=== PATIENT | female | born 1990 | race Caucasian/White ===

== ENCOUNTER 2016-05-24 00:14 | Emergency (ER) | payer BC ==
[2016-05-24 00:22] VITALS: TEMP 98.1
[2016-05-24] MEDS ORDERED: FAMOTIDINE 20 MG/2 ML SDV ONE (00:41)
[2016-05-24] MEDS ORDERED: methylPREDNISolone SOD SUCC 125 MG/2 ML VIAL IVP ONE (00:44)
[2016-05-24] MEDS ORDERED: FAMOTIDINE 20 MG/2 ML SDV IVP ONE (00:46)
[2016-05-24] MEDS ORDERED: methylPREDNISolone SOD SUCC 125 MG/2 ML VIAL ONE (01:44)
--- NOTE | 2016-05-24 01:57 | EDPHY ---
H & P Stated Complaint: allergic rxn of unk source, swelling/itching to face, some swelling in thro Time Seen by Provider: 05/24/16 00:34 HPI/ROS: HPI The patient presents difficulty swallowing and periorbital swelling which began just prior to presentation. She drink a raspberry sour at about 10:45 p.m. tonight and then noticed that her eyes were watering and her throat and face felt itchy. She had some difficulty swallowing. Her symptoms were constant and getting progressively worse, thus she came to the emergency room. She has no prior history of similar. She does have an allergy to Bactrim which causes a rash. She has no family history of allergies except for a father with seasonal allergies. She does not have any rash, vomiting, dizziness. REVIEW OF SYSTEMS Constitutional: No fever, no chills. Eyes: No discharge. ENT: No sore throat. Cardiovascular: No chest pain, no palpitations. Respiratory: No cough, no shortness of breath. Gastrointestinal: No abdominal pain, no vomiting. Genitourinary: No hematuria. Musculoskeletal: No back pain. Skin: No rashes. Neurological: No headache. PMHx: Healthy PHYSICAL General Appearance: Alert, no distress Eyes: Pupils equal and round no pallor or injection, periorbital edema bilaterally causing her eyes to be mostly shot ENT, Mouth: Mucous membranes moist, posterior pharynx appears normal Respiratory: There are no retractions, lungs are clear to auscultation Cardiovascular: Regular rate and rhythm Gastrointestinal: Abdomen is soft and non-tender, no masses, bowel sounds normal Neurological: A&O, moves all extremities Skin: Warm and dry, no rashes Musculoskeletal: Neck is supple non tender Extremities: symmetrical, full range of motion Psychiatric: Patient is oriented X 3, there is no agitation Source: Patient Exam Limitations: No limitations - Medical/Surgical History Hx Asthma: Yes Hx Chronic Respiratory Disease: No Hx Diabetes: No Hx Cardiac Disease: No Hx Renal Disease: No Hx Cirrhosis: No Hx Alcoholism: No Hx HIV/AIDS: No Hx Splenectomy or Spleen Trauma: No Other PMH: pmh: ASTHMA. PSH:LAPAROSCOPY - Social History Smoking Status: Never smoked Constitutional: Initial Vital Signs Temperature (C) 36.7 C 05/24/16 00:19 Heart Rate 55 L 05/24/16 00:19 Respiratory Rate 16 05/24/16 00:19 Blood Pressure 119/73 05/24/16 00:19 O2 Sat (%) 97 05/24/16 00:19 O2 Delivery Mode Room Air Allergies/Adverse Reactions: sulfamethoxazole [From Octra] Allergy (Verified 05/24/16 00:22) trimethoprim [From Octra] Allergy (Verified 05/24/16 00:22) Home Medications: Medication Instructions Recorded Nexplanon 06/04/15 Proair Hfa Icu (RX) 06/04/15 EPINEPHrine [Epipen 0.3 MG] 0.3 mg IM ONCE #2 syr 05/24/16 Medical Decision Making Differential Diagnosis: This is a 25-year-old healthy female who presents with periorbital swelling, difficulty swallowing with itchy throat and watery eyes. She did drink a whiskey sour just prior to the onset of her symptoms. Differential diagnosis includes food allergy, anaphylaxis, cellulitis. In the emergency room, the patient was given epinephrine, Solu-Medrol, Benadryl and Pepcid prior to my assessment. She began to feel better immediately. She was monitored in the emergency room for several hours with no recurrence of her symptoms. She will be discharged with an EpiPen. The patient was monitored for 4 and 0.5 hours from the onset of her symptoms with no recurrence. She felt well and her eyelid swelling and throat itching improved significantly. - Data Points Medications Given: Discontinued Medications Diphenhydramine HCl (Benadryl Injection) 50 mg IVP EDNOW ONE Stop: 05/24/16 00:45 Last Admin: 05/24/16 00:47 Dose: 50 mg Epinephrine HCl (Epinephrine) 0.3 mg IM EDNOW ONE Stop: 05/24/16 00:45 Last Admin: 05/24/16 00:46 Dose: 0.3 mg Famotidine (Pepcid) 20 mg IVP EDNOW ONE Stop: 05/24/16 00:47 Last Admin: 05/24/16 00:47 Dose: 20 mg Methylprednisolone Sodium Succinate (Solu-Medrol) 125 mg IVP EDNOW ONE Stop: 05/24/16 00:45 Last Admin: 05/24/16 00:46 Dose: 125 mg Departure - Departure Disposition: Home, Routine, Self-Care Clinical Impression: Allergic reaction Condition: Good Instructions: Epinephrine (By injection), Food Allergy (ED), Anaphylaxis (ED) Additional Instructions: Please return to the emergency room if your worse in any way. Referrals: Althea Guzman PA [Primary Care Provider] - As per Instructions Prescriptions: EPINEPHrine [Epipen 0.3 MG] 0.3 mg IM ONCE #2 syr
[2016-05-24 03:28] VITALS: BP 120/55; PULSE 68; RESP 14; O2SAT 96
== END 2016-05-24 03:26 | disposition home or self-care (01) ==
DX: T78.40XA Allergy, unspecified, initial encounter (principal); J45.909 Unspecified asthma, uncomplicated
CPT/HCPCS: 96374; J0171; J1200